=== PATIENT | male | born 1950 | race Caucasian/White ===

== ENCOUNTER 2023-12-06 12:28 | Day surgery (SDC) | payer MEDICARE, SELFPAY ==
--- NOTE | 2023-12-06 13:10 | PCM.HP.BLA ---
History and Physical Date of Admission: 12/06/23 Date of Service: 12/03/23 MR#: [id number] Acct: [id number] Name: JOSIE ALBARADO Rep #: [id number] : 1950 Provider: Dr. Kristen Ceja MD Age/Sex: 72/M Location: [facility] Status: Signed Intake Vital Signs 11/24/2410:22 12/03/2407:24 Height 5 ft 11 in 5 ft 11 in Weight: 258 lb 248 lb BMI 35.9 34.5 BP 103/67 106/68 Blood Pressure Location Lt brachial Rt brachial Position Sitting Sitting Respiration 18 18 Pulse 79 66 Pulse Source Monitor Monitor Temp 97.8 F 97.2 F L Temp Source Temporal Pulse Oximetry (%) 93 94 Oxygen Delivery Method room air room air Intake Visit Reasons: PEG TUBE Chief Complaint: PEG TUBE [employer] Repairer Required: No Accompanied by: and son Is patient in pain?: No Allergies No Known Allergies Allergy (Unverified 12/03/23 08:27) Medications ?Medication ?Instructions ?Recorded ?Confirmed ?Type acetaminophen 160 mg/5 mL oral 500 mg PO Q8H PRN 11/22/23 12/03/23 History liquid lisinopril 20 mg tablet 20 mg PO DAILY 11/22/23 12/03/23 History metformin 500 mg tablet 500 mg PO BID 11/22/23 12/03/23 History PFSH Medical History Obesity Elevated PSA 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 Kidney stone HTN (hypertension) Hyperlipidemia Diabetes mellitus Colon polyp Surgical History History of laryngoscopy History of lithotripsy History of rectal polypectomy History of radical neck dissection Tracheostomy status Family History Brother Colorectal cancerBrother LeukemiaBrother Prostate cancer Social History household members: spouse current occupational status: retired Smoking Status: Former smoker quit date: 07/15/15 pack-years: 40 Tobacco: How many years used: 40 substance use type: does not use HPI HPI HPI: 72-year-old male presents due to squamous cell carcinoma of the mandible status post reconstructive surgery at [facility]. Patient presents for PEG tube placement and is planning to start radiation next Saturday. No plans for chemotherapy. ROS General General: Yes weight change (loss of ~40lbs) and fatigue; No appetite, colon cancer or breast cancer HEENT HEENT: No difficulty swallowing, eye injury, eye surgery, swollen glands or hoarseness Endo Endocrine: Yes diabetes mellitus; No thyroid disease, thyroid cancer, Hair loss, heat intolerance or cold intolerance Skin Skin: No rash or changing moles Musc Musculoskeletal: Yes arthritis and gout; No back problems, rheumatoid arthritis or joint pain Cardio Cardiovascular: Yes high blood pressure; No murmur, pacemaker, heart disease, atrial fibrillation, heart attack, heart stent, palpitations, shortness of breat with exertion or chest pain Psych Psychiatric: No depression, anxiety or hearing voices Resp Respiratory: No shortness of breath, No sleep apnea, Yes cough, No COPD, No asthma, No emphysema and No wheezing Gastro Gastrointestinal: Yes constipation Yonis Hematologic: No blood thinners, No blood disorders, No bleeding, No anemia and No blood clots Neuro Neurologic: No numbness and No tingling Exam Const General: cooperative, healthy appearing, comfortable and no acute distress HENMT Head: normocephalic Other: Status post reconstructive surgery of left mandible with packing in place Neck Neck: supple Resp Effort & Inspection: normal respiratory effort Cardio Rate: regular rate GI Inspection: non-distended Palpation: soft, no hernias and nontender Skin General: no rashes or lesions noted Neuro General: CN's II-XI intact bilaterally Extrem Other: Right boot in place as bone was taken from the right leg further reconstructive surgery. 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 I have offered the patient esophagogastroduodenoscopy placement of PEG tube. I have explained the risks/benefits of the procedure and described the procedure. I have discussed the risks with the patient, including but not limited to: infection, bleeding, perforation of the GI tract requiring emergency surgery, inability to complete the procedure, injury to any internal organs, complications of anesthesia, etc. - the patient understands and agrees to proceed. I have answered all the patient's questions to the patient's satisfaction and the patient has no further questions. Kristen Ceja M.D. Pager: [phone] [facility] [address] [place] [address], [address] [place] [address] Office: 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
[2023-12-06 13:15] VITALS: BP 130/72; PULSE 74; RESP 16; TEMP 36.1; O2SAT 99; BMI 34.1
[2023-12-06] MEDS: Lactated Ringers 1,000 ML 15 ML IV (13:22)
[2023-12-06 13:56] LABS: Bedside Glucose 91 mg/dL (74-106)
[2023-12-06 15:12] VITALS: BP 108/81; BP 130/72; PULSE 81; RESP 14; TEMP 36.1; O2SAT 99
--- NOTE | 2023-12-06 15:14 | OP.EGD_ITS ---
Patient Name: Nasir Lorenz Procedure Date: 12/06/2023 2:15 PM Date of : 1950 Age: 72 Procedure: Upper GI endoscopy Indications: Place PEG due to feeding difficulties secondary to oropharyngeal tumor Providers: Kristen Ceja MD Medicines: Monitored Anesthesia Care Patient Profile: This is a 72 year old male. Complications: No immediate complications. Procedure: Pre-Anesthesia Assessment: - Prior to the procedure, a History and Physical was performed, and patient medications and allergies were reviewed. The patient's tolerance of previous anesthesia was also reviewed. The risks and benefits of the procedure and the sedation options and risks were discussed with the patient. All questions were answered, and informed consent was obtained. Prior Anticoagulants: The patient has taken no anticoagulant or antiplatelet agents. ASA Grade Assessment: Per anesthesia. After reviewing the risks and benefits, the patient was deemed in satisfactory condition to undergo the procedure. After obtaining informed consent, the endoscope was passed under direct vision. Throughout the procedure, the patient's blood pressure, pulse, and oxygen saturations were monitored continuously. The Endoscope was introduced through the mouth, and advanced to the second part of duodenum. The patient tolerated the procedure well. Scope In: 2:40:05 PM Scope Out: 3:01:01 PM Total Procedure Duration Time 0 hours 20 minutes 56 seconds Findings: The Z-line was variable and was found 40 cm from the incisors. The examined duodenum was normal. No gross lesions were noted in the entire examined stomach. The patient was placed in the supine position for PEG placement. The stomach was insufflated to appose gastric and abdominal powell. A site was located in the body of the stomach with excellent transillumination for placement. The abdominal wall was marked and prepped in a sterile manner. The area was anesthetized with 5 mL of 0.5% lidocaine. The trocar needle was introduced through the abdominal wall and into the stomach under direct endoscopic view. A snare was introduced through the endoscope and opened in the gastric lumen. The guide wire was passed through the trocar and into the open snare. The snare was closed around the guide wire. The endoscope and snare were removed, pulling the wire out through the mouth. A skin incision was made at the site of needle insertion. The externally removable 20 Fr EndoVive Safety gastrostomy tube was lubricated. The G-tube was tied to the guide wire and pulled through the mouth and into the stomach. The trocar needle was removed, and the gastrostomy tube was pulled out from the stomach through the skin. The external bumper was attached to the gastrostomy tube, and the tube was cut to remove the guide wire. The final position of the gastrostomy tube was confirmed by relook endoscopy, and skin marking noted to be 3.5 cm at the external bumper. The final tension and compression of the abdominal wall by the PEG tube and external bumper were checked and revealed that the bumper was loose and lightly touching the skin. The feeding tube was capped, and the tube site cleaned and dressed. Impression: - Z-line variable, 40 cm from the incisors. - Normal examined duodenum. - No gross lesions in the entire stomach. - An externally removable PEG placement was successfully completed. - No specimens collected. Recommendation: - Discharge patient to home. - Resume previous diet. - Continue present medications. - Please follow the post-PEG recommendations including: change dressing once per day and flush PEG daily with 60 ml water. Procedure Code(s): --- Professional --- 13266, Esophagogastroduodenoscopy, flexible, transoral; with directed placement of percutaneous gastrostomy tube Diagnosis Code(s): --- Professional --- K22.89, Other specified disease of esophagus D37.05, Neoplasm of uncertain behavior of pharynx R63.39, Other feeding difficulties Z43.1, Encounter for attention to gastrostomy CPT copyright 2021 [employer]. All rights reserved. The codes documented in this report are preliminary and upon decision support analyst review may be revised to meet current compliance requirements. MD Kristen Beebe MD 12/06/2023 3:14:34 PM This report has been signed electronically. Number of Addenda: 0 Note Initiated On: 12/06/2023 2:15 PM
[2023-12-06 15:15] VITALS: BP 130/72; BP 131/80; PULSE 79; RESP 16; O2SAT 100
--- NOTE | 2023-12-06 15:15 | OP.CCLET_ITS ---
12/06/2023 No Primary Care Physician Re : Upper GI endoscopy procedure for Nasir Lorenz Dear Care Physician This procedure was performed on Wednesday, December 06, 2023. My impressions and recommendations are as follows: Impressions : - Z-line variable, 40 cm from the incisors. - Normal examined duodenum. - No gross lesions in the entire stomach. - An externally removable PEG placement was successfully completed. - No specimens collected. Recommendations : - Discharge patient to home. - Resume previous diet. - Continue present medications. - Please follow the post-PEG recommendations including: change dressing once per day and flush PEG daily with 60 ml water. My findings are described in the full procedure note, which is enclosed. If I can be of further assistance, please feel free to contact me at Doctor phone number(s): , Work: . Sincerely, MD Kristen Beebe MD 12/06/2023 3:14:34 PM This report has been signed electronically.
[2023-12-06 15:19] VITALS: BP 113/79; BP 130/72; PULSE 82; RESP 16; TEMP 36.6; O2SAT 100
[2023-12-06 15:39] VITALS: BP 130/72
== END 2023-12-06 15:41 | disposition home or self-care (01) ==
LOC: EN 12:29 → AC 12:32
PROVIDERS: Referring Provider Surgery; Visit Provider Surgery
PROC: 0DJ08ZZ Inspection of Upper Intestinal Tract, Via Natural or Artificial Opening Endoscopic (ICD-10-PCS; CPT 43235; principal; 2023-12-06 13:55)
DX: C41.1 Malignant neoplasm of mandible (principal); E11.9 Type 2 diabetes mellitus without complications; Z79.84 Long term (current) use of oral hypoglycemic drugs; E78.5 Hyperlipidemia, unspecified; I10 Essential (primary) hypertension; Z79.899 Other long term (current) drug therapy; Z85.828 Personal history of other malignant neoplasm of skin
CPT/HCPCS: 43246; 82962; J7120; J2405

== ENCOUNTER 2024-02-17 13:00 | Outpatient (RCR) | payer MEDICARE, SELFPAY | END 2024-03-14 23:59 | LOC: NS 13:00 | PROVIDERS: Visit Provider Student in an Organized Health Care Education/Training Program | DX: Z71.3 Dietary counseling and surveillance (principal); C41.1 Malignant neoplasm of mandible; C06.9 Malignant neoplasm of mouth, unspecified; R63.4 Abnormal weight loss | CPT/HCPCS: 97803 ==

== ENCOUNTER 2024-03-23 13:47 | Outpatient (RCR) | payer MEDICARE, SELFPAY | END 2024-04-13 23:59 | LOC: NS 13:47 | PROVIDERS: Visit Provider Student in an Organized Health Care Education/Training Program | DX: Z71.3 Dietary counseling and surveillance (principal); C41.1 Malignant neoplasm of mandible ==

== ENCOUNTER 2024-04-20 14:42 | Outpatient (RCR) | payer MEDICARE, SELFPAY ==
--- NOTE | 2024-04-29 11:50 | NS ---
04/29/24: Pt's spouse called asking if they could decrease pt's tube feed amount. They are currently doing 7 cartons over 4 boluses daily. Discussed that pt could cut back to 6 cartons daily to help increase appetite. He has a home health nurse and in home [facility]. Spouse states he was able to eat 1/2 cup of chicken pot pie soup yesterday. Has still been eating pudding. Encouraged her to add some heavy whipping cream to creamy soups for added calories. Encourage spouse to write down what foods pt is eating an amounts daily. Will call her (C: [phone]) for follow-up next week to discussed possibly decreasing tube feeds some more. Isatu Casas RDN, LD
== END 2024-05-14 23:59 ==
LOC: NS 14:42
PROVIDERS: Visit Provider Student in an Organized Health Care Education/Training Program
DX: Z71.3 Dietary counseling and surveillance (principal); C41.1 Malignant neoplasm of mandible

== ENCOUNTER 2024-06-02 15:00 | Outpatient (RCR) | payer MEDICARE, SELFPAY | END 2024-06-13 23:59 | LOC: NS 15:00 | PROVIDERS: Visit Provider Student in an Organized Health Care Education/Training Program | DX: Z71.3 Dietary counseling and surveillance (principal); C41.1 Malignant neoplasm of mandible ==

== ENCOUNTER 2024-06-22 13:00 | Outpatient (RCR) | payer MEDICARE, SELFPAY | END 2024-07-14 23:59 | LOC: NS 13:00 | PROVIDERS: Visit Provider Student in an Organized Health Care Education/Training Program | DX: C41.1 Malignant neoplasm of mandible (principal); Z71.3 Dietary counseling and surveillance ==

== ENCOUNTER 2024-08-10 10:53 | Outpatient (RCR) | payer MEDICARE, SELFPAY | END 2024-08-14 23:59 | LOC: NS 10:53 | PROVIDERS: Visit Provider Student in an Organized Health Care Education/Training Program | DX: Z71.3 Dietary counseling and surveillance (principal); C41.1 Malignant neoplasm of mandible ==

== ENCOUNTER 2024-09-07 15:53 | Outpatient (RCR) | payer MEDICARE, SELFPAY | END 2024-09-11 23:59 | LOC: NS 15:53 | PROVIDERS: Visit Provider Student in an Organized Health Care Education/Training Program | DX: C41.1 Malignant neoplasm of mandible (principal) ==

== ENCOUNTER 2024-11-26 10:15 | Outpatient (RCR) | payer MEDICARE, SELFPAY ==
--- NOTE | 2024-12-28 11:47 | NS ---
12/28/24: RDN attempted to call pt's home phone but there was now answer. RDN unable to leave voicemail. Will attempt to call at a later date. Isatu Casas RDN, LD
--- NOTE | 2025-01-04 11:46 | NS ---
01/04/25: Called and left voicemail for patient on home phone. Will attempt phone call again next month if no response back.
== END 2024-12-12 23:59 ==
LOC: NS 10:15
PROVIDERS: Visit Provider Student in an Organized Health Care Education/Training Program
DX: Z71.3 Dietary counseling and surveillance (principal); C41.1 Malignant neoplasm of mandible; R63.4 Abnormal weight loss
CPT/HCPCS: 97803

== ENCOUNTER → 2025-02-16 | Outpatient (CLI) | payer MEDICARE, SELFPAY ==
--- NOTE | 2025-02-16 11:07 | ST.MBS ---
Modified Barium Swallow Patient Information Study Date: 02/16/25 Study Time: 10:30 Direct Billable Minutes: 130 Total Minutes procedure & reportin Diagnosis: SCC of mandibular alveolar ridge C41.1 Referring Physician: Charles Thomas Reason for Referral: Assess swallow function, assess risk for aspiration, and determine recommendations for any necessary dysphagia interventions. 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 From 12/10/2023 ? 01/20/2024 he received adjuvant radiation therapy.? Dysphagia Hx per patient report today: Patient reports hx of dysphagia since composite resection and flap based reconstruction (10/28/2023) for SCC involving the left alveolar ridge/mandible. Pt had NG tube placed after sx at the [facility]. He had first MBSS at this time, no details provided re: results of this MBSS. The patient followed w/ HH ST both during and following completion of radiation treatment. Currently, he reports only utilizing PEG tube 1 day for feeds in the past 6 weeks when he had a dental procedure completed. Unfortunately, as he has weaned from the PEG tube, he has experienced weight loss. He does follow w/ [facility]?s supervisor machiningIsatu. He reports not qualifying for additional HH ST at this time, and he has not explored any outpatient ST options. Pt reports MBSS within the last 6months w/ his HH ST. Per pt, MBSS revealed aspiration and recommended double swallows. He currently consumes Easy to Chew textures / Thin liquids, denies coughing w/ food/drink. He avoids foods he can?t thoroughly chew due to limited lower dentition (a few back teeth on his R side). Pt reports severe xerostomia in the morning. Moderate hypogeusia. Pt denies hx of PNA. Pt was referred for this MBSS by his radiation oncologist to monitor swallow function s/p radiation treatment. 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 PER TRIAL): PENETRATION / ASPIRATION SCALE (CASTRO): 1 = does not enter airway 2 = enters airway/above vocal folds/ejected 3 = enters airway/above vocal folds/not ejected 4 = enters airway/contacts vocal folds/ejected 5 = enters airway/contacts vocal folds/not ejected 6 = enters airway/below vocal folds/ejected 7 = enters airway/below vocal folds/not ejected despite effort 8 = enters airway/below vocal folds/no effort VIDEOFLOROSCOPIC SCALE SCORE (CASTRO): Grade I = aspiration of material that has penetrated into the laryngeal vestibule, intact cough reflex Grade II = aspiration < 10 % of the bolus, intact cough reflex Grade III = aspiration of < 10 % of the bolus, reduced cough reflex or aspiration of > 10 % of the bolus, intact cough reflex Grade IV = aspiration of > 10 % of the bolus, reduced cough reflex Penetration-Aspiration Scale Score Thin Liquid via single sip: straw: Result: 5= enters airways/contacts vocal folds/not ejected Thin liquid via single sip: straw w/ cued effortful double swallow: Result: 5= enters airways/contacts vocal folds/not ejected Thin Liquid via teaspoon: Result: 1= does not enter airway Comment: Cued cough and re-swallow = effective Thin liquid via single sip: straw w/ cued breath hold, then swallow (modified supraglottic): Result: 5= enters airways/contacts vocal folds/not ejected Comment: Cued cough and re-swallow = somewhat effective. Cued throat clear and re-swallow = effective. Thin Liquid via single sip: straw Chin tuck: Result: 2= enter airway/above vocal folds/ejected Ideal Thick Liquid via single sip: straw: Result: 3= enters airways/above vocal folds/not ejected Pudding via teaspoon: Result: 1= does not enter airway Comment: Esophageal screen - Retention in the lower esophagus w/ min retrograde flow. 1/2 Cookie: Result: 1= does not enter airway Comment: Cued chin tuck (pt completed 2 swallows in chin tuck position) after the swallow = somewhat effective in clearing pharyngeal residues Pudding via teaspoon Chin tuck: Result: 1= does not enter airway Comment: Pt completed double swallow w/ chin tuck Thin Liquid via single sip: straw Chin tuck Trial 2: Result: 5= enters airways/contacts vocal folds/not ejected Comment: Premature posterior loss to the vocal folds due to delayed execution of chin tuck. Thin Liquid via single sip: straw Chin tuck Trial 3: Result: 2= enter airway/above vocal folds/ejected Thin Liquid via single sip: straw Chin tuck Trial 4: Result: 1= does not enter airway Oral Phase Labial Seal: Escape progressing to mid-chin Tongue Control During Bolus Hold: Posterior escape of greater than half of bolus Bolus Preparation/Mastication: Slow prolonged chewing/mashing with complete recollection Bolus Transport/Lingual Motion: Repetitive/disorganized tongue motion Oral Residue: Residue collection on oral structures Pharyngeal Phase Initiation of Pharyngeal Swallow: Bolus head in pyriforms Soft Palate Elevation: Trace column of contrast/air between soft palate and pharyngeal wall Laryngeal Elevation: Partial superior movement thyroid cart/partial apprx aryt-epig petiole Anterior Hyoid Excursion: Partial anterior movement Epiglottic Movement: Partial inversion Laryngeal Vestibule Closure at Height of Swallow: Incomplete; narrow column of air/contrast in laryngeal vestibule Pharyngeal Stripping Wave: Present - diminished Pharyngoesophageal Segment Opening: Minimal distension and minimal duration; marked obstruction of flow Tongue Base Retraction: Wide column of contrast between tongue base & post. pharyngeal wall Pharyngeal Residue: Majority of contrast within or on pharyngeal structures Esophageal Phase Esophageal Clearance: Esophageal retention w/ retrograde flow below pharyngoesophageal seg. Diagnosis/Impression Diagnosis: Moderate oropharyngeal dysphagia R13.12 MBS Impressions: The oral phase is primarily marked by... -Decreased bolus control w/ premature posterior loss of liquid boluses to the laryngeal vestibule and pharynx prior to swallow onset, increasing risk for aspiration before the swallow. -Lingual pumping for A-P transport. -Mild oral residues. -Slow, but complete mastication of 1/2 Shilpi Doone cookie. The pharyngeal phase is primarily marked by... -Delayed swallow onset. -Decreased pharyngeal motility due to poor TB retraction and poor pharyngeal stripping wave, as well as decreased UES opening/duration of opening. Moderate-severe pharyngeal residues of pudding and cookie after the first swallow. Multiple swallows and chin tuck were somewhat effective in reducing pharyngeal residues. -Decreased airway closure due to decreased anterior hyoid excursion, laryngeal elevation, and partial epiglottic inversion. No aspiration occurred during the study; however, he had frequent laryngeal penetration of liquids to the vocal folds w/ no reflexive cough or throat clear. This WILDLIFE CONTROL AGENT believes he is at high risk for aspiration. Chin tuck most effectively reduced risk for aspiration. Throat clear and re-swallow also reduced risk for aspiration. The esophageal phase is primarily marked by... -Mild retention of pudding in the lower esophagus w/ min retrograde flow. Recommendations Diet: Easy to Chew Textures and Thin Liquids Comment: Intermittent throat clear and re-swallow Frequent oral care Compensatory Strategies: Small Bites (CHEW THOROUGHLY, EFFORTFUL MULTIPLE SWALLOWS, chin tuck if sensation of pharyngeal retention despite use of effortful multiple swallows), Small Sips (CHIN TUCK W/ ALL SIPS, pt preference for straw sips due to anterior loss w/ cup sips), Slow Rate, Alternate bites/solids and sips/liquids, Sitting upright and Remain sitting upright for 30 minutes after PO intake Recommend Repeat Modified Barium Swallow: Yes (Repeat MBSS in 3-6 months for ongoing assessment of swallow function and aspiration risk. Swallow function is at risk to worsen s/p radiation treatment for SCC of the mandibular alveolar ridge.) Need for Skilled Speech Therapy Services: Yes Comment: WILDLIFE CONTROL AGENT recommended the patient for intensive dysphagia treatment via the [facility] ([facility]) given current moderate oropharyngeal dysphagia w/ hx of HNC s/p radiation treatment. Pt politely declined intensive dysphagia treatment, but was interested in following up w/ OP ST to learn an oropharyngeal swallow exercise program. He reports having never completed oropharyngeal exercises during or following his HNC treatment. Of note, pt has a long commute to [facility] and is unable to follow up w/ this WILDLIFE CONTROL AGENT at [facility] due to long commute. WILDLIFE CONTROL AGENT is strongly recommending follow up w/ OP ST w/ Alex. This MBSS will be sent to [facility] department w/ the patient's permission. Will recommend OP ST POC includes... -Train the patient in use of strategies to decrease risk for aspiration. Pt requires continued education re: proper execution of chin tuck w/ liquids. Use chin tuck w/ solids as needed to aid in clearing pharyngeal residues. -Ongoing assessment of diet tolerance of recommended textures. -Train the patient in a thorough oral care routine. -Train the patient in an oral motor and oropharyngeal exercise program to address the above mentioned deficits (lingual coordination, lingual resistance, Jo-Ann, Effortful, Grant). Recommended Referrals: Dietitian Consult (Continue to follow w/ OP supervisor machiningIsatu, at [facility] re: weight loss while weaning from PEG tube) Education Completed: 1. Described result of evaluation., 2. Pt understands evaluation & agrees with goals and treatment plan., 4. Family/caregivers understand evaluation & agree w/ goals & tx plan. and 7. Pt requires further education on strategies & risks. Status Active ST Patient: Active Contact Information [facility] Speech Therapy:: Ann Russell M.A. CCC-WILDLIFE CONTROL AGENT? Speech-Language Pathologist?? [facility] [address] [place] [address]? [email or web address]?? [phone]
== END | disposition home or self-care (01) ==
PROVIDERS: Referring Provider Student in an Organized Health Care Education/Training Program; Visit Provider Student in an Organized Health Care Education/Training Program
DX: C41.1 Malignant neoplasm of mandible (principal)
CPT/HCPCS: 74230; 92611

== ENCOUNTER 2025-03-10 15:27 | Outpatient (RCR) | payer MEDICARE, SELFPAY | END 2025-03-14 23:59 | LOC: NS 15:27 | PROVIDERS: Visit Provider Student in an Organized Health Care Education/Training Program | DX: Z71.3 Dietary counseling and surveillance (principal); C41.1 Malignant neoplasm of mandible ==

== ENCOUNTER 2025-05-27 10:54 | Outpatient (RCR) | payer MEDICARE, SELFPAY | END 2025-06-13 23:59 | LOC: NS 10:54 | PROVIDERS: Visit Provider Student in an Organized Health Care Education/Training Program | DX: Z71.3 Dietary counseling and surveillance (principal); C41.1 Malignant neoplasm of mandible | CPT/HCPCS: 97802 ==